=== PATIENT | female | born 1985 | race African-American/Black ===

== ENCOUNTER 2017-03-22 10:42 | Emergency (ER) | payer OTHER ==
[~2017-03-22] VITALS: Ht 157.5 cm; Wt 90.7 kg
[2017-03-22 10:42] VITALS: BP 148/69
[2017-03-22] MEDS ORDERED: TRAMADOL 50 MG50 MG PO (11:24)
[2017-03-22] MEDS ORDERED: NAPROSYN500 MG PO (11:24)
[2017-03-22] MEDS ORDERED: ROBAXIN500 MG PO (11:24)
== END 2017-03-22 11:39 | disposition home or self-care (01) ==
LOC: ER 10:42
DX: S16.1XXA Strain of muscle, fascia and tendon at neck level, initial encounter (principal); V49.40XA Driver injured in collision with unspecified motor vehicles in traffic accident, initial encounter; Y93.89 Activity, other specified; Y92.89 Other specified places as the place of occurrence of the external cause; Y99.8 Other external cause status